=== PATIENT | male | born 1945 | race Caucasian/White ===

== ENCOUNTER → 2024-01-11 | Outpatient (CLI) | payer MEDICARE | END | disposition home or self-care (01) | LOC: RAH 14:11 | PROVIDERS: ATTEND Family Medicine | DX: M17.0 Bilateral primary osteoarthritis of knee (principal); M19.011 Primary osteoarthritis, right shoulder; M79.89 Other specified soft tissue disorders; M25.562 Pain in left knee; M25.511 Pain in right shoulder; M25.561 Pain in right knee | CPT/HCPCS: 73030; 73562 ==